=== PATIENT | male | born 1970 | race Hispanic/Latino ===

== ENCOUNTER → 2017-12-16 | Day surgery (SDC) | payer BC ==
[2017-12-15 13:40] LABS: BASOPHILS # (AUTO) 0.1 (0.0-0.1); EOSINOPHILS # (AUTO) 0.1 (0.0-0.4); EOSINOPHILS % 1.2 % (0.0-6.0); HEMATOCRIT 42.1 % (38.2-49.6); HEMOGLOBIN 14.4 g/dL (14.0-18.0); LYMPHOCYTES # (AUTO) 1.4 (1.0-3.2); LYMPHOCYTES % 19.7 % (18.0-39.1); MEAN CORPUSCULAR HEMOGLOBIN 30.4 pg (28-32); MEAN CORPUSCULAR HGB CONC 34.2 g/dL (31-35); MEAN CORPUSCULAR VOLUME 88.8 fL (81-99); MONOCYTES # (AUTO) 0.7 (0.2-0.8); NEUTROPHILS % 68.8 % (38.7-80.0); PLATELET COUNT 264 x10e3/uL (140-360); RED BLOOD COUNT 4.74 x10e6/uL (4.3-5.7); RED CELL DISTRIBUTION WIDTH 13.1 % (11.7-14.4)
[2017-12-15 14:01] LABS: ANION GAP 16.8 mmol/L (8-16); BLOOD UREA NITROGEN 21 mg/dL (7-26); BUN/CREATININE RATIO 18 (6-25); CALCIUM 9.9 mg/dL (8.4-10.2); CARBON DIOXIDE 24 mmol/L (22-29); CHLORIDE 102 mmol/L (98-107); CREATININE, SERUM 1.15 mg/dL (0.72-1.25); EST GLOMERULAR FILTRATION RATE > 60 ML/MIN (60-); GLUCOSE 137 mg/dL (74-118); POTASSIUM 3.8 mmol/L (3.5-5.1); SODIUM 139 mmol/L (136-145)
[~2017-12-16] MED LIST: ACETAMINOPHEN/CODEINE 300MG - 30MG TAB ONE; AMLODIPINE BESY10 MG PO; BUPIVACAINE 0.25%/EPI 30ML SDV INJ ONE; DEXAMETHASONE SOD PHOS INJ 4 MG/ML VIAL ONE; DIPHENHYDRAMINE HCL 25 MG CAP PO NR; FENTANYL CITRATE/PF 100MCG/2 ML INJ ONE; GLIPIZIDE5 MG PO; HYDROGEN PEROXIDE 120 ML BTL ONE; HYZAAR 100-12.1 EACH; KETOROLAC TROMETHAMINE 30 MG/ML VIAL ONE; LIDOCAINE HCL 2% LOCAL INJ 5 ML SDV VIAL INJ ONE; METFORMIN HCL500 MG PO; MIDAZOLAM HCL 2 MG/2 ML VIAL ONE; MORPHINE SULFATE 2 MG/ML SYR ONE; ONDANSETRON HCL INJ 2 MG/ML VIAL ONE; PROPOFOL IV EMULSION 10 MG/ML 20 ML VIAL ONE; SEVOFLURANE INHAL SOLN 250 ML PEN BTL ONE
[2017-12-16 12:05] VITALS: BP 127/77
--- NOTE | 2017-12-16 13:25 | Operative Report ---
DATE OF PROCEDURE: December 16, 2017 PREOPERATIVE DIAGNOSIS: Infected epidermal inclusion cyst. POSTOPERATIVE DIAGNOSIS: Infected epidermal inclusion cyst. PROCEDURE PERFORMED: Incision and drainage of epidermal inclusion cyst of the back. ANESTHESIA: General endotracheal. ESTIMATED BLOOD LOSS: Minimal. DRAINS: One-quarter inch [place]. COMPLICATIONS: None. INDICATIONS AND FINDINGS: The patient is a 47-year-old male admitted for drainage of epidermal inclusion cyst of the back. He was seen in my office several days ago, started on antibiotics. The patient's cyst infection did not resolve and became a true abscess at this point, then he was admitted for drainage. He and his understood that he will need a second procedure to remove the disease once the infection is under control. Otherwise, the chances of recurrence are very high. DESCRIPTION OF THE PROCEDURE: With the patient lying on the operative table in the supine position after administration of general endotracheal anesthesia, he was placed in the left lateral decubitus position. The infected cyst which was located in the lower mid back slightly to the left of the midline was incised in its most fluctuant area and the cavity entered, loculations broken down, all the pus which was foul smelling was drained including as much lining as I could remove. Then, the cavity irrigated. A counter incision was made lateral to that and after copious irrigation of the cavity with saline, Betadine and peroxide, a Bethany drain 1/4 inch was placed between the 2 incisions and secured to itself with 3-0 silk. Then, the cavity was packed with iodoform gauze. Sterile dressing was applied. The patient tolerated the procedure well, taken to the recovery room in stable condition. Job#: [id number]
== END | disposition home or self-care (01) ==
LOC: OR 06:45
PROVIDERS: ATTEND Surgery
DX: L02.212 Cutaneous abscess of back [any part, except buttock and flank] (principal); L72.0 Epidermal cyst; E11.9 Type 2 diabetes mellitus without complications; I10 Essential (primary) hypertension; Z01.810 Encounter for preprocedural cardiovascular examination; Z01.812 Encounter for preprocedural laboratory examination; Z79.84 Long term (current) use of oral hypoglycemic drugs
CPT/HCPCS: 10060; 36415 ×2; 80048; 82948; 85025; 87071; 87075; 87205; 93005; J1100; J1885; J2001; J2250; J2270; J2405

== ENCOUNTER → 2018-01-13 | Day surgery (SDC) | payer BC ==
[~2018-01-13] MED LIST changes: +ACETAMINOPHEN 1000 MG/100 ML IV ONE; +CEFAZOLIN SOD 1 GM VIAL ONE; -DIPHENHYDRAMINE HCL 25 MG CAP PO NR; +GLYCOPYRROLATE INJ 1MG/ 5 ML SYR ONE; -HYDROGEN PEROXIDE 120 ML BTL ONE; +LIDOCAINE HCL 1% LOCAL INJ 20 ML VIAL ONE; -MORPHINE SULFATE 2 MG/ML SYR ONE; +MUPIROCIN 2% OINT 22 GM TUBE ONE; +NEOSTIGMINE 1 MG/ML 10ML VIAL ONE; +NEOSTIGMINE 5 MG/5ML SYR ONE; +ROCURONIUM BROMIDE 10 MG/ML 5ML VIAL ONE
[2018-01-13 14:27] VITALS: BP 125/90
--- NOTE | 2018-01-13 15:04 | Operative Report ---
DATE OF PROCEDURE: January 13, 2018 PREOPERATIVE DIAGNOSES 1. Previously drained large epidermal inclusion cyst of the back. 2. Diabetes. POSTOPERATIVE DIAGNOSES 1. Previously drained large epidermal inclusion cyst of the back. 2. Diabetes. PROCEDURE PERFORMED: Excision of previously drained epidermal inclusion cyst of the back with flap closure. ANESTHESIA: General endotracheal. ESTIMATED BLOOD LOSS: Minimal. DRAINS: None. COMPLICATIONS: None. INDICATIONS AND FINDINGS: The patient is a 47-year-old, diabetic male who had undergone incision and drainage of an epidermal inclusion cyst of the back, now admitted for closure. The entire previously drained site that was located in the lower back superior to the lumbar region was excised with all clear margins, with full-thickness subcutaneous excision. Full-thickness subcutaneous flaps were raised to close a large defect. Of note is the fact that the patient had a lumbar incision well healed inferior to the operative field today. DESCRIPTION OF PROCEDURE: With the patient lying on the operating table in the prone position, after administration of general endotracheal anesthesia, he was given prophylactic antibiotics and prepped and draped with Betadine. An elliptical incision was made over the previously drained scar site surrounding the inflammatory process, which was all included. The incision was at least 10 cm long to allow closure. The bleeding points were cauterized. Then, using electrocautery, the entire specimen was excised and delivered. The wound was irrigated. Bleeding points were cauterized. The wound was then infiltrated copiously with 0.25% Marcaine with epinephrine in the subcutaneous tissue as well as the skin. After the sponge and instrument count was correct and bleeding points were cauterized and the wound was irrigated again, the wound was closed in layers using a combination of #0 and 2-0 Vicryl for the soft tissues, and the skin was closed using 2-0 vertical mattress silk. Sterile dressing was applied. The patient tolerated the procedure well and was taken to the recovery room in stable condition. Job#: [id number]
== END | disposition home or self-care (01) ==
LOC: OR 08:19
PROVIDERS: ATTEND Surgery
DX: L72.0 Epidermal cyst (principal); E11.9 Type 2 diabetes mellitus without complications; I10 Essential (primary) hypertension; Z79.84 Long term (current) use of oral hypoglycemic drugs
CPT/HCPCS: 11406; 12034; 36415; 82948; 88304; J0131; J0690; J1100; J1885; J2001; J2250; J2405; J2704; J2710; J3490